=== PATIENT | female | born 1985 | race Caucasian/White ===

== ENCOUNTER 2016-06-18 08:20 | Emergency (ER) | payer SELFPAY ==
[~2016-06-18] VITALS: Ht 165.1 cm; Wt 59.0 kg
[~2016-06-18 08:20] MED LIST: ACET-789 PO; ACHD5005 PO; ALPR1T PO; ALPR2TAB2 PO; CARB100C4 PO; CPR500T PO; DCS100C PO; DESV50TA PO; Ibuprofen PO; LEVE500T6 PO; NAPR-243 PO; NITR100C3 PO; PHEN200T27 PO; PNV11TAB PO; PRM25T PO; SERT50TA PO; TRM50T PO; WELLBUTRIN; [UNRECOGNIZED DRUG - CODE] PO
[2016-06-18 09:05] LABS: BILIRUBIN,URINE NEGATIVE (NEGATIVE); KETONES,URINE 4+ (NEGATIVE); LEUKOCYTE ESTERASE ,URINE NEGATIVE (NEGATIVE); NITRITE,URINE NEGATIVE (NEGATIVE); PH,URINE 6 (5-9); PROTEIN,URINE NEGATIVE (NEGATIVE); UROBILINOGEN,URINE NORMAL (NORMAL)
[2016-06-18 09:16] LABS: WBC,URINE RARE /HPF
[2016-06-18] MEDS ORDERED: LIDOCAINE 2% VISCOUS 15 ML UDC PO ONE (09:30)
[2016-06-18] MEDS ORDERED: ANTACID SUSP 30 ML UDC (MYLANTA) PO ONE (09:30)
[2016-06-18] MEDS ORDERED: NS IV 1000 ML 1,000 ML IV SCH (09:30)
[2016-06-18] MEDS ORDERED: LORazepam INJ 2 MG/ML (ATIVAN) VIAL ONE (09:54)
[2016-06-18 10:00] LABS: BASOPHILS % (AUTO) 0 % (0-10); EOSINOPHILS # (AUTO) 0.2 10^3/uL (0.0-0.3); EOSINOPHILS % (AUTO) 2 % (0-10); LYMPHOCYTES # (AUTO) 2.4 X 10^3 (1.0-4.0); LYMPHOCYTES % (AUTO) 20 % (12-44); MEAN CORPUSCULAR HEMOGLOBIN 33 PG (25-34); MEAN CORPUSCULAR HGB CONC 34 G/DL (32-36); MEAN CORPUSCULAR VOLUME 95 FL (80-99); MEAN PLATELET VOLUME 9.9 FL (7.4-10.4); MONOCYTES # (AUTO) 0.5 X 10^3 (0.0-1.0); MONOCYTES % (AUTO) 4 % (0-12); NEUTROPHILS # (AUTO) 9.2 X 10^3 (1.8-7.8); NEUTROPHILS % (AUTO) 75 % (42-75); PLATELET COUNT 287 10^3/uL (130-400); RED BLOOD COUNT 4.68 10^6/uL (4.35-5.85); RED CELL DISTRIBUTION WIDTH 12.2 % (10.0-14.5); WHITE BLOOD COUNT 12.3 10^3/uL (4.3-11.0)
[2016-06-18] MEDS ORDERED: LORazepam INJ 2 MG/ML (ATIVAN) VIAL IVP ONE (10:15)
[2016-06-18 10:19] LABS: ALANINE AMINOTRANSFERASE 22 U/L (0-55); ALBUMIN 4.8 G/DL (3.2-4.5); AMYLASE 47 U/L (25-125); ANION GAP 10 MMOL/L (5-14); ASPARTATE AMINO TRANSFERASE 18 U/L (5-34); BILIRUBIN,TOTAL 0.9 MG/DL (0.1-1.0); BLOOD UREA NITROGEN 14 MG/DL (7-18); BUN/CREATININE RATIO 18; CALCIUM 9.9 MG/DL (8.5-10.1); CARBON DIOXIDE 23 MMOL/L (21-32); CHLORIDE 106 MMOL/L (98-107); CREATININE SERUM 0.78 MG/DL (0.60-1.30); GFR ESTIMATED > 60; GLUCOSE 84 MG/DL (70-105); POTASSIUM 3.9 MMOL/L (3.6-5.0); SODIUM 139 MMOL/L (135-145); TOTAL PROTEIN 7.7 G/DL (6.4-8.2)
[2016-06-18] MEDS ORDERED: NS 100 ML (IVPB) BAG IV ONE (11:15)
[2016-06-18] MEDS ORDERED: IOHEXOL 350 MG/ML 100 ML (OMNIPAQUE 350) VIAL IV ONE (11:15)
--- NOTE | 2016-06-18 12:23 | Diagnostic Imaging Report ---
PROCEDURE: CT abdomen and pelvis with contrast. TECHNIQUE: Multiple contiguous axial images were obtained through the abdomen and pelvis after administration of intravenous contrast. INDICATION: Nausea and vomiting. Diarrhea. 100 mL of Omnipaque 350 is administered intravenously. FINDINGS: The lung bases appear clear. There is a 1.3 cm lesion in the central aspect of the liver anteriorly that becomes isodense to the rest of the liver on the delayed phase images, possibly representing an FNH or flash filling hemangioma. The gallbladder demonstrates no calcified stone. The spleen, the adrenals, and the pancreas appear unremarkable. The kidneys have symmetric enhancement and contrast excretion. There is no hydronephrosis. Abdominal aorta is normal in caliber. No para-aortic significantly enlarged lymph node is seen. The uterus demonstrates an IUD and there are bilateral adnexal prominent follicles. No bowel obstruction. No significant free fluid or fluid collection in the abdomen or pelvis is seen. The appendix is the not clearly identified. Mild stranding in the small bowel mesentery is seen. There is also mild enhancement of the gastric and small bowel mucosa without dilatation. Minimal prominence of mesenteric lymph nodes seen. This may correlate for underlying enteritis. Osseous structures demonstrate a sclerotic focus in the anterior aspect of the left iliac bone measuring 8 mm probably a bony island. IMPRESSION: The appendix is not seen. Mucosal enhancement in the stomach and small bowel with mesenteric stranding with prominence of mesenteric lymph nodes, may relate to gastroenteritis. Correlate clinically. Dictated by: Dictated on workstation # [id number]
--- NOTE | 2016-06-18 12:39 | ED GI ---
General Chief Complaint: Abdominal/GI Problems Stated Complaint: ABDOMINAL PAIN,BLOOD IN STOOL Nursing Triage Note: c/o increased acid reflux followed by vomiting. Pt concerned about diarrhea and rectal pain. Hx of bulemia. Hx of esophagitis 2004. Sepsis Screen: No Definite Risk Source of Information: Patient, Family History of Present Illness Time Seen By Provider: 10:45 Initial Comments 31-year-old white female presents with acute anxiety. Patient has been depressed since her committed suicide several years ago. The patient has had a history of recurrent similar presentations to the emergency department for anxiety. Patient had a variety of laboratory evaluations which were all apparently unremarkable. Patient is under the care of Dr. Stevenson at [facility]. Allergies and Home Medications Allergies Coded Allergies: Penicillins (Verified Allergy, Unknown, 09/06/05) latex (Verified Allergy, Unknown, 05/19/13) Home Medications Docusate Sodium 100 Mg Cap, 100 MG PO BID PRN for CONSTIPATION, #20 Prescribed by: ZHOU BALDWIN on 09/06/13 0951 Hydrocodone Bit/Acetaminophen 1 Tab Tab, 1-2 TAB PO Q4H PRN for pain, #50 Prescribed by: ZHOU BALDWIN on 09/06/13 0951 Levetiracetam 500 Mg Tablet, 500 MG PO BID, (Reported) [id number]/Iron Fumarate/FA/Dss 1 Each Tablet, 1 EACH PO DAILY, (Reported) Promethazine Hcl 25 Mg Tab, 25 MG PO Q6H, (Reported) [Ibuprofen] 600 MG TAB, 600 MG PO Q6H PRN for PAIN, #60 Prescribed by: ZHOU BALDWIN on 09/06/13 0951 Review of Systems Constitutional: No chills, No fever Respiratory: Denies Cough Cardiovascular: Denies Chest Pain Gastrointestinal: Abdominal Pain, Denies Diarrhea, Nausea, Poor Appetite, Denies Vomiting Genitourinary: Denies Burning, Denies Discharge Musculoskeletal: No back pain Skin: No change in color, No rash Psychiatric/Neurological: Anxiety, Depressed Endocrine: No Symptoms Reported Hematologic/Lymphatic: No Symptoms Reported Past Fvxwukq-Omneyo-Hlzazi Hx Patient Social History Alcohol Use: Occasionally Uses Recreational Drug Use: No Type Used: Cigars Recent Foreign Travel: No Contact w/Someone Who Travel: No Recent Infectious Disease Expo: No Recent Hopitalizations: Yes (T&A, ESOPHAGITIS, ) Immunizations Up To Date Tetanus Booster (TDap): Unknown Surgeries HX Surgeries: Yes (EGD, COLONOSCOPY C/S X2, ) Respiratory Hx Respiratory Disorders: No Cardiovascular Hx Cardiac Disorders: No Neurological Hx 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) Reproductive System Hx Reproductive Disorders: Yes Sexually Transmitted Disease: Yes (HPV) HIV/AIDS: No Female Reproductive Disorders: Denies Genitourinary Hx Genitourinary Disorders: No Gastrointestinal Hx Gastrointestinal Disorders: No Musculoskeletal Hx Musculoskeletal Disorders: No Endocrine Hx Endocrine Disorders: No HEENT HX ENT Disorders: No Cancer Hx Cancer: No Psychosocial Hx Psychiatric Problems: Yes Behavioral Health Disorders: Anxiety, PTSD Integumentary HX Skin/Integumentary Disorder: Yes Skin/Integumentary Disorders: Eczema Blood Transfusions Hx Blood Disorders: No Adverse Reaction to a Blood Tr: No Reviewed Nursing Assessment Reviewed/Agree w Nursing PMH: Yes Family Medical History Significant Family History: No Pertinent Family Hx Family Medial History: Alcoholism 19 FATHER GRANDPARENTS Cancer 19 MOTHER (CERVICAL) Family history: Arthritis GRANDPARENTS Hereditary disease GRANDPARENTS (SPINEA BIFEA) Seizure disorder GRANDPARENTS No Family History of: Abdominal aortic aneurysm Cancer of colon Cystic fibrosis Dementia Family history: Cardiovascular disease Family history: Diabetes mellitus Family history: Thyroid disorder Kidney disease Myocardial infarction Parkinson's disease Prostate cancer Psychotic disorder Stroke Physical Exam Vital Signs VS - Last 72 Hours, by Label 06/18/16 09:05 Temp 97.8 Pulse 88 Resp 16 B/P (MAP) 138/60 Pulse Ox 98 O2 Delivery Room Air Capillary Refill : Less Than 3 Seconds General Appearance: WD/WN, severe distress HEENT: normal ENT inspection Neck: normal inspection Respiratory: chest non-tender, lungs clear, normal breath sounds Cardiovascular: normal peripheral pulses, regular rate, rhythm Gastrointestinal: normal bowel sounds, non tender, soft Extremities: normal range of motion, non-tender, normal inspection Back: normal inspection Neurologic/Psychiatric: no motor/sensory deficits, alert, normal mood/affect, oriented x 3, depressed affect, other (the patient's extremely anxious. She also appears to be clinically depressed.) Skin: normal color, warm/dry Progress/Results/Core Measures Results/Orders Lab Results Laboratory Tests Test 06/18/16 09:00 06/18/16 09:50 Range/Units Urine Color YELLOW Urine Clarity CLEAR Urine pH 6 5-9 Urine Specific [place] 1.020 1.016-1.022 Urine Protein NEGATIVE NEGATIVE Urine Glucose (UA) NEGATIVE NEGATIVE Urine Ketones 4+ H NEGATIVE Urine Nitrite NEGATIVE NEGATIVE Urine Bilirubin NEGATIVE NEGATIVE Urine Urobilinogen NORMAL NORMAL MG/DL Urine Leukocyte Esterase NEGATIVE NEGATIVE Urine RBC (Auto) NEGATIVE NEGATIVE Urine RBC RARE /HPF Urine WBC RARE /HPF Urine Squamous Epithelial Cells 2-5 /HPF Urine Crystals NONE /LPF Urine Bacteria TRACE /HPF Urine Casts NONE /LPF Urine Mucus MODERATE H /LPF Urine Culture Indicated NO Urine Test NEGATIVE NEGATIVE White Blood Count 12.3 H 4.3-11.0 10^3/uL Red Blood Count 4.68 4.35-5.85 10^6/uL Hemoglobin 15.3 11.5-16.0 G/DL Hematocrit 45 35-52 % Mean Corpuscular Volume 95 80-99 FL Mean Corpuscular Hemoglobin 33 25-34 PG Mean Corpuscular Hemoglobin Concent 34 32-36 G/DL Red Cell Distribution Width 12.2 10.0-14.5 % Platelet Count 287 130-400 10^3/uL Mean Platelet Volume 9.9 7.4-10.4 FL Neutrophils (%) (Auto) 75 42-75 % Lymphocytes (%) (Auto) 20 12-44 % Monocytes (%) (Auto) 4 0-12 % Eosinophils (%) (Auto) 2 0-10 % Basophils (%) (Auto) 0 0-10 % Neutrophils # (Auto) 9.2 H 1.8-7.8 X 10^3 Lymphocytes # (Auto) 2.4 1.0-4.0 X 10^3 Monocytes # (Auto) 0.5 0.0-1.0 X 10^3 Eosinophils # (Auto) 0.2 0.0-0.3 10^3/uL Basophils # (Auto) 0.0 0.0-0.1 10^3/uL Sodium Level 139 135-145 MMOL/L Potassium Level 3.9 3.6-5.0 MMOL/L Chloride Level 106 98-107 MMOL/L Carbon Dioxide Level 23 21-32 MMOL/L Anion Gap 10 5-14 MMOL/L Blood Urea Nitrogen 14 7-18 MG/DL Creatinine 0.78 0.60-1.30 MG/DL Estimat Glomerular Filtration Rate > 60 BUN/Creatinine Ratio 18 Glucose Level 84 70-105 MG/DL Calcium Level 9.9 8.5-10.1 MG/DL Total Bilirubin 0.9 0.1-1.0 MG/DL Aspartate Amino Transf (AST/SGOT) 18 5-34 U/L Alanine Aminotransferase (ALT/SGPT) 22 0-55 U/L Alkaline Phosphatase 49 40-136 U/L Total Protein 7.7 6.4-8.2 G/DL Albumin 4.8 H 3.2-4.5 G/DL Amylase Level 47 25-125 U/L My Orders Orders - IZZY PFEIFFER MD Hcg,Qualitative Urine (06/18/16 08:54) Ua Culture If Indicated (06/18/16 08:54) Antacid Suspension (Mylanta Suspension (06/18/16 09:30) Lidocaine 2% Viscous 15 Ml (Xylocaine Vi (06/18/16 09:30) Cbc With Automated Diff (06/18/16 09:27) Comprehensive Metabolic Panel (06/18/16 09:27) Amylase (06/18/16 09:27) Ns Iv 1000 Ml (Sodium Chloride 0.9%) (06/18/16 09:30) Lorazepam Injection (Ativan Injection) (06/18/16 09:54) Lorazepam Injection (Ativan Injection) (06/18/16 10:15) Iohexol Injection (Omnipaque 350 Mg/Ml 1 (06/18/16 11:15) Ns (Ivpb) (Sodium Chloride 0.9% Ivpb Bag (06/18/16 11:15) Ct Abdomen/Pelvis W (06/18/16 10:52) Medications Given in ED Current Medications Medications Dose Ordered Sig/Carol Route Start Time Stop Time Status Last Admin Dose Admin Al Hydrox/Mg Hydrox/Simethicone 30 ml ONCE ONCE PO 06/18/16 09:30 06/18/16 09:32 DC 06/18/16 09:45 30 ML Iohexol 100 ml ONCE ONCE IV 06/18/16 11:15 06/18/16 11:16 DC 06/18/16 11:55 100 ML Lidocaine HCl 5 ml ONCE ONCE PO 06/18/16 09:30 06/18/16 09:32 DC 06/18/16 09:45 5 ML Lorazepam 2 mg STK-MED ONCE .ROUTE 06/18/16 09:54 06/18/16 09:58 DC 06/18/16 10:00 2 MG Vital Signs/I&O Vital Sign - Last 12Hours 06/18/16 09:05 Temp 97.8 Pulse 88 Resp 16 B/P (MAP) 138/60 Pulse Ox 98 O2 Delivery Room Air Blood Pressure Mean: 86 Departure Communication Time/Spoke to Admitting Phy: 12:42 Communication I spoke with Dr. Stevenson who agreed to start patient on some Celexa this with some Ativan for her anxiety. Patient will follow up closely with Dr. Mercado on Tuesday. I invited her to return the emergency Department in the interim for any problems or questions Impression Impression: Primary Impression: Anxiety Additional Impression: Depression Qualified Codes: F33.2 - Major depressive disorder, recurrent severe without psychotic features Disposition: HOME, SELF-CARE Condition: Improved Departure-Patient Inst. Decision time for Depature: 12:46 Referrals: [facility] (PCP/Family) Primary Care Physician Patient Instructions: No Instuctions Given Add. Discharge Instructions: Celexa and Ativan for her depression and anxiety. Follow-up with Dr. Stevenson on Tuesday. Return if any problems. All discharge instructions reviewed with patient and/or family. Voiced understanding. IZZY PFEIFFER MD June 18, 2016 12:38
[2016-06-18 13:08] VITALS: BP 128/70
== END 2016-06-18 13:08 | disposition home or self-care (01) ==
LOC: EDUNIT# 08:20 → ER 08:24
DX: F33.9 Major depressive disorder, recurrent, unspecified (principal); F41.9 Anxiety disorder, unspecified
CPT/HCPCS: 36415; 74177; 80053; 81000; 82150; 84703; 85025; 96361; 96374

== ENCOUNTER → 2018-07-07 | Outpatient (CLI) | payer MEDICAID ==
--- NOTE | 2018-07-07 16:46 | Diagnostic Imaging Report ---
INDICATION: survey. TECHNIQUE: Multiple real-time grayscale images were obtained over the gravid uterus. COMPARISON: None FINDINGS: There is a single live fetus in a cephalic presentation. heart rate was recorded at 163 beats per minute. Placenta is anterior. Amniotic fluid volume is normal. survey demonstrates kidneys, bladder and stomach to be unremarkable. brain is unremarkable. There is a four-chambered heart. There is a three-vessel cord with normal insertion. spine is unremarkable. Cervical length measurement is 4.0 cm. Biometrical measurements are as follows: Biparietal 5.41 cm, age 22 weeks 4 days. Head circumference 19.97 cm, age 22 weeks 1 days. Abdominal circumference 15.68 cm, age 20 weeks 6 days. Femur length 3.60 cm, age 21 weeks 3 days. Sonographic estimate age: 21 weeks 6 days. Sonographic estimated date of delivery: 11/11/18. Estimated Weight: 410 gm (+/- 60 gm). LMP percentile: 4%. heart rate: 163 beats per minute. number: 1 of 1. IMPRESSION: Single live IUP 21 weeks 6 days' gestational age. Estimated date of confinement sonographically is 11/11/2018. Dictated by: Dictated on workstation # [id number]
== END ==
LOC: RAD 13:07
PROVIDERS: ATTEND Obstetrics & Gynecology
DX: Z36.89 Encounter for other specified antenatal screening (principal); Z3A.21 21 weeks gestation of pregnancy
CPT/HCPCS: 76805

== ENCOUNTER 2018-10-12 11:45 | Outpatient (CLI) | payer MEDICAID ==
[~2018-10-12] VITALS: Ht 165.1 cm; Wt 71.7 kg
--- NOTE | 2018-10-12 11:45 | NUR ---
MARY LEDEZMA presented to unit via ambulation, accompanied by S.O., with c/o LOWER BACK PAIN AND CRAMPING. MARY LEDEZMA weighed, gowned, voided, and to bed. EFHM and TOCO applied, VS taken. MARY LEDEZMA oriented to bed controls, call light, TV, heat, and A/C controls.
[2018-10-12 11:55] VITALS: BP 134/86
[2018-10-12 12:37] LABS: BILIRUBIN,URINE NEGATIVE (NEGATIVE); CLARITY,URINE CLEAR; COLOR,URINE YELLOW; GLUCOSE, URINE (UA) NEGATIVE (NEGATIVE); KETONES,URINE NEGATIVE (NEGATIVE); LEUKOCYTE ESTERASE ,URINE NEGATIVE (NEGATIVE); NITRITE,URINE NEGATIVE (NEGATIVE); PH,URINE 6 (5-9); PROTEIN,URINE NEGATIVE (NEGATIVE); UROBILINOGEN,URINE NORMAL (NORMAL)
[2018-10-12 12:41] LABS: BACTERIA,URINE TRACE /HPF; WBC,URINE RARE /HPF
--- NOTE | 2018-10-12 12:50 | NUR ---
Dr. Neal called to notify of pt. Giving presentation, will call back in about 10min as not emergent.
--- NOTE | 2018-10-12 13:05 | NUR ---
Dr. Neal called back to unit. notified of pt c/o lower back and abdominal cramping and pain, which is constant and intermittently gets worse. Movement and movement make pain worse as well. Pt also experiencing sharp, shooting pains "in cervix". Pt reports having this pain almost all and has been taking muscle relaxers and pain medications, she thinks flexeril and oxycodone. Pt missed last appt with Dr. Ruff and was supposed to get medications refilled at that time, and has been out for about a week. Pt took 500mg tylenol this am around 0800, but got no relief. notified of rpt c/s, FHR, ctx pattern, SVE, VS, UA. Orders for CBC, no pain medication at this time.
--- NOTE | 2018-10-12 13:16 | NUR ---
Pt notified of POC. Pt agitated that no pain medications are given and says "If all we are doing is blood work then I will just wait to do that in the office because I have an appt with Ruff this afternoon and she was going to do that anyway." Dr. Neal called and notified of pt refusing CBC. Dismiss pt without CBC.
[2018-10-12] MEDS ORDERED: OMEP10CA5 PO (13:23)
--- NOTE | 2018-10-12 13:30 | NUR ---
Discharge instructions explained to pt with copy provided. Pt verbalizes understanding of instructions. Denies questions or concerns. Ambulates off unit accompanied by S.O. to private vehicle.
--- NOTE | 2018-10-13 10:51 | Physician Query-Final Dx ---
NADIA BELL 10/13/18 1051: Clinic Account Progress/Dx Physician Query: Please give diagnosis Please remember to add weeks gestation Date of Service Oct 12, 2018 at 11:45 ZHOU BALDWIN DO 10/14/18 0752: Clinic Account Progress/Dx DIAGNOSIS: Diagnosis 35 week IUP Pelvic pressure and dyscomfort Irregular contractions NADIA BELL Oct 13, 2018 10:51 ZHOU BALDWIN DO Oct 14, 2018 07:52
== END 2018-10-12 13:30 | disposition home or self-care (01) ==
LOC: WSo 11:45 → LDRP 11:45 → WSo 13:30
PROVIDERS: ATTEND Obstetrics & Gynecology
DX: O47.03 False labor before 37 completed weeks of gestation, third trimester (principal); Z3A.35 35 weeks gestation of pregnancy
CPT/HCPCS: 81000; 99213

== ENCOUNTER → 2018-10-24 | Outpatient (CLI) | payer MEDICAID ==
[~2018-10-24] MED LIST changes: +OMEP10CA5 PO
== END | disposition home or self-care (01) ==
LOC: PREOP 05:49
PROVIDERS: ATTEND Obstetrics & Gynecology
DX: Z01.818 Encounter for other preprocedural examination (principal)

== ENCOUNTER 2018-10-31 06:10 | Inpatient (IN) | payer MEDICAID ==
[2018-10-31] VITALS (10 sets, daily range): BP systolic 109–147; BP diastolic 69–86
[~2018-10-31] VITALS: Ht 165.1 cm; Wt 74.6 kg
[~2018-10-31 06:10] MED LIST changes: +ALPR0.25 PO; +CITRIC ACID/SOB CIT (BICITRA) 30 ML UDC ONE; +CYCL10TA9 PO; +ESCI20TA PO; +FAMOTIDINE 20MG/2ML IV (PEPCID) ONE; +METOCLOPRAMIDE INJ 10 MG/2 ML (REGLAN) ONE; +OXYC-471 PO
--- NOTE | 2018-10-31 06:19 | NUR ---
MARY LEDEZMA presented to unit via ambulation from home/ED, accompanied by SO, for REPEAT . MARY LEDEZMA weighed, gowned, voided, and to bed. EFHM and TOCO applied, VS taken. MARY LEDEZMA oriented to bed controls, call light, TV, heat, and A/C controls.
[2018-10-31] MEDS ORDERED: LACTATED RINGERS 1,000 ML IV PRN ×2 (06:22)
[2018-10-31] MEDS ORDERED: ceFAZolin INJECTION 1,000 MG in WATER (STERILE) FOR INJECTION 10 ML IV ONE ×2 (06:30→09:15)
[2018-10-31] MEDS ORDERED: METOCLOPRAMIDE INJ 10 MG/2 ML (REGLAN) IV ONE (06:30)
[2018-10-31] MEDS ORDERED: FAMOTIDINE 20MG/2ML IV (PEPCID) IV ONE (06:30)
[2018-10-31] MEDS ORDERED: CITRIC ACID/SOB CIT (BICITRA) 30 ML UDC PO ONE (06:30)
[2018-10-31] MEDS ORDERED: CATHETER FLUSH 10 ML SYR IV PRN (06:30)
[2018-10-31] MEDS ORDERED: WATER (STERILE) FOR INJECTION 20 ML ONE (06:47)
[2018-10-31] MEDS ORDERED: ceFAZolin INJECTION 1,000 MG ONE (06:47)
[2018-10-31] MEDS ORDERED: fentaNYL INJECTION 100 MCG/2 ML AMP ONE (06:57)
[2018-10-31] MEDS ORDERED: ROPIVACAINE 5MG/ML 30ML VIAL ONE ×2 (06:57→08:32)
[2018-10-31 07:00] LABS: BASOPHILS % (AUTO) 0 % (0-10); EOSINOPHILS # (AUTO) 0.3 10^3/uL (0.0-0.3); EOSINOPHILS % (AUTO) 2 % (0-10); HEMATOCRIT 35 % (35-52); HEMOGLOBIN 11.6 G/DL (11.5-16.0); LYMPHOCYTES # (AUTO) 3.1 X 10^3 (1.0-4.0); LYMPHOCYTES % (AUTO) 25 % (12-44); MEAN CORPUSCULAR HEMOGLOBIN 32 PG (25-34); MEAN CORPUSCULAR HGB CONC 33 G/DL (32-36); MEAN CORPUSCULAR VOLUME 98 FL (80-99); MEAN PLATELET VOLUME 10.2 FL (7.4-10.4); MONOCYTES # (AUTO) 0.8 X 10^3 (0.0-1.0); MONOCYTES % (AUTO) 6 % (0-12); NEUTROPHILS # (AUTO) 8.3 X 10^3 (1.8-7.8); NEUTROPHILS % (AUTO) 66 % (42-75); PLATELET COUNT 306 10^3/uL (130-400); RED CELL DISTRIBUTION WIDTH 12.9 % (10.0-14.5); WHITE BLOOD COUNT 12.4 10^3/uL (4.3-11.0)
[2018-10-31 07:01] LABS: BILIRUBIN,URINE NEGATIVE (NEGATIVE); CLARITY,URINE CLEAR; COLOR,URINE YELLOW; GLUCOSE, URINE (UA) NEGATIVE (NEGATIVE); KETONES,URINE 1+ (NEGATIVE); LEUKOCYTE ESTERASE ,URINE 1+ (NEGATIVE); NITRITE,URINE NEGATIVE (NEGATIVE); PH,URINE 6 (5-9); PROTEIN,URINE 1+ (NEGATIVE); UROBILINOGEN,URINE NORMAL (NORMAL)
[2018-10-31] MEDS ORDERED: OXYTOCIN/NORMAL SALINE 1,000 ML IV ONE (07:04)
[2018-10-31 07:21] LABS: BACTERIA,URINE FEW /HPF; WBC,URINE 0-2 /HPF
[2018-10-31] MEDS ORDERED: OXYTOCIN/NORMAL SALINE 500 ML IV SCH (09:03)
--- NOTE | 2018-10-31 09:11 | Cesarean Section Operative ---
Procedure Procedure Note Pre-operative Diagnosis: Seth De La Cruz is a (31 /Para 4 /4 , Gestational Age (wks) with [] Post-operative Diagnosis: same Procedure: Repeat low transverse section Physician: PRATIK MEZA Automatic Oven Operator: Meenu Zapien MS III Estimated blood loss: 400 mL Disposition: stable Findings: Viable female infant, Apgars 8/9, weight 5#13ounces, intact placenta, 3vc, normal appearing uterus, tubes, and ovaries. Indications:Seth De La Cruz is a (31 /Para 4/4 ,Gestational Age (wks) presenting for []. Procedure Details: The patient was seen in pre-op and the procedure was discussed with the patient in full, including the risks, benefits, and alternatives. All questions were answered. The patient was taken to the operating room and a time out was performed, verifying patient and procedure. After spinal anesthesia was placed by our anesthesia colleagues, the patient was placed in the dorsal supine with leftward tilt for uterine displacement.~ Her abdomen was then prepped and draped in the typical sterile fashion. A Pfann enstiel skin incision was made using a scalpel and carried down through the underlying fascia. The fascia was incised in the midline and tented up using Brinda clamps. On both the inferior and superior fascia side the rectus muscle was dissected off bluntly and sharply using Acosta scissors. The peritoneum was identified and entered bluntly in the midline. This was then stretched laterally using manual strength. After entering the abdominal cavity and confirming lack of intraperitoneal adhesions, a large Mathew retractor was placed and the lower uterine segment was visualized. A bladder flap was created with the use of Metzenbaum scissors.~ A scalpel was utilized to make a low transverse uterine incision. Amniotomy was performed with an Allis clamp with return of clear fluid. The 's head was grasped and brought to the level of the incision. Fundal pressure was applied and infant was delivered without difficulty. Mouth and nares were suctioned with bulb suction. After the umbilical cord was clamped and cut, the was handed off to the pediatric staff. A sample of cord blood was then obtained. The placenta was delivered intact via uterine massage. The uterus was exteriorized and cleared of all clots and debris. The uterine incision was closed using 0 Vicryl in a running locked fashion. A second imbricated layer was placed using 0 Vicryl in a running fashion as well. The uterus was flexed forward and the posterior rectouterine space was inspected and cleared of all clots and debris. Again the hysterotomy site was examined and hemostasis was observed. The bilateral tubes and ovaries appeared normal. The uterus was placed back into the abdominal cavity and abdominal gutters were cleared of all clots and debris. A final check of the uterine incision showed it to be hemostatic. The peritoneum was closed using 3-0 Vicryl in a running fashion. The fascia was closed with 0 Vicryl in a running fashion. The subcutaneous space was hemostatic, and irrigated. The subcutaneous space was closed with 3-0 Vicryl in several single interrupted stitches. The skin was then closed using 4-0 Monocryl in a running subcuticular fashion. The skin edges were reapproximated together and were hemostatic. A pressure dressing was applied. All sponge, lap and needle counts were correct at the end of the procedure per nursing. Vitals - Labs Vital Signs - I&O Vital Signs Date Time Temp Pulse Resp B/P (MAP) Pulse Ox O2 Delivery O2 Flow Rate FiO2 10/31/18 08:48 Room Air Labs Laboratory Tests 10/31/18 06:20: Urine Color YELLOW, Urine Clarity CLEAR, Urine pH 6, Urine Specific [place] 1.030H, Urine Protein 1+H, Urine Glucose (UA) NEGATIVE, Urine Ketones 1+H, Urine Nitrite NEGATIVE, Urine Bilirubin NEGATIVE, Urine Urobilinogen NORMAL, Urine Leukocyte Esterase 1+H, Urine RBC (Auto) NEGATIVE, Urine RBC NONE, Urine WBC 0- 2, Urine Squamous Epithelial Cells 5-10, Urine Crystals NONE, Urine Bacteria FEWH, Urine Casts NONE, Urine Mucus LARGEH, Urine Culture Indicated YES 10/31/18 06:40: White Blood Count 12.4H, Red Blood Count 3.58L, Hemoglobin 11.6, Hematocrit 35, Mean Corpuscular Volume 98, Mean Corpuscular Hemoglobin 32, Mean Corpuscular Hemoglobin Concent 33, Red Cell Distribution Width 12.9, Platelet Count 306, Mean Platelet Volume 10.2, Neutrophils (%) (Auto) 66, Lymphocytes (%) (Auto) 25, Monocytes (%) (Auto) 6, Eosinophils (%) (Auto) 2, Basophils (%) (Auto) 0, Neutrophils # (Auto) 8.3H, Lymphocytes # (Auto) 3.1, Monocytes # (Auto) 0.8, Eosinophils # (Auto) 0.3, Basophils # (Auto) 0.0 PRATIK MEZA DO Oct 31, 2018 09:11
[2018-10-31] MEDS ORDERED: MEASLES,MUMPS,RUBELLA 1 EA INJ SC SCH (09:15)
[2018-10-31] MEDS ORDERED: TETANUS,DIPTH,PERTUSS P/F (BOOSTRIX) 0.5 ML VIAL IM SCH (09:15)
--- NOTE | 2018-10-31 10:00 | NUR ---
TRANSFERRED TO PP ROOM 308 FROM [facility] AFTER A REPEAT SECTION BY DR. MEZA. ORIENTED TO CALL LIGHT OPERATION, ROOM SERVICE PROCEDURE, AND SURROUNDINGS. S.O. AT BEDSIDE. VSS. ABD SOFT. ABD DRSG D/I. (LOW TRANSVERSE) FF U/2. VAG FLOW LT/MOD GUZMAN. INSTRUCTED PT TO CALL THIS RN WHEN SHE NEEDS TO URINATE. STATES UNDERSTANDING.
--- NOTE | 2018-10-31 11:35 | NUR ---
UP TO THE BATHROOM TO ATTEMPT TO VOID. PT HAD PUT ON HER LIGHT BUT STARTED GETTING UP WITHOUT RN IN ROOM. UNABLE TO VOID. PERICARE PERFORMED WITH PAD AND UNDERWEAR APPLIED. BACK TO BED WITHOUT PROBLEMS. BEARING WEIGHT WELL.
[2018-10-31] MEDS: KETOROLAC 30 MG/ML VIAL IV SCH ×2 (12:06→17:52)
--- NOTE | 2018-10-31 12:08 | NUR ---
OXYIR 5 MG P.O. FOR C/O ABD PAIN. PT COUGHING. RT NOTIFIED UPON ARRIVAL FOR I.S.
[2018-10-31] MEDS: morphine INJ 4 MG/ML 1 ML (VIAL/SYRINGE) IVP PRN ×2 (12:48→18:35)
--- NOTE | 2018-10-31 12:48 | NUR ---
PT TEARFUL AND C/O MEDICATION NOT WORKING. MSO4 2 MG IVP.
--- NOTE | 2018-10-31 13:30 | NUR ---
STATES PAIN DECREASED TO 2/10. FAMILY AT BEDSIDE. FF U/2. VAG FLOW LT/MOD RUBRA.
--- NOTE | 2018-10-31 14:15 | NUR ---
ROUTINE TYLENOL GIVEN. PT ASKING WHEN SHE CAN HAVE "THE GOOD STUFF". INFORMED IT WOULD BE A WHILE LONGER. FAMILY AT BEDSIDE.
[2018-10-31] MEDS: ACETAMINOPHEN 500 MG TAB (TYLENOL) PO SCH (14:28)
--- NOTE | 2018-10-31 14:49 | NUR ---
RT IN TO DO I.S. FAMILY AT BEDSIDE.
--- NOTE | 2018-10-31 16:00 | NUR ---
UP TO THE BATHROOM WITH ASSISTANCE. VOIDED 200 CC DARK KRISTIE URINE. PERICARE WITH PAD CHANGE. BACK TO BED WITHOUT PROBLEMS. FF U/2. VAG FLOW LT RUBRA. ENCOURAGED TO DRINK MORE FLUIDS. FAMILY AT BEDSIDE.
--- NOTE | 2018-10-31 17:48 | NUR ---
OXYIR 5 MG P.O. FOR C/O ABD PAIN. TORADOL GIVEN.
--- NOTE | 2018-10-31 18:35 | NUR ---
MORPHINE 2 MG IVP FOR C/O UNRELIEVED PAIN.
--- NOTE | 2018-10-31 19:20 | NUR ---
REPORT RECEIVED AND CARES RESUMED BY THIS NURSE.
--- NOTE | 2018-10-31 20:15 | NUR ---
INITIAL SHIFT ASSESSMENT DONE. PT REPORTS PAIN UNCONTROLLED AND REPORTS THAT 5MG OF OXYCODONE AND THE MORPHINE ARE NOT TOUCHING HER PAIN. VSS. WILL CONTACT DR MEZA FOR ORDERS.
[2018-10-31] MEDS: CATHETER FLUSH 10 ML SYR IV SCH (22:00)
--- NOTE | 2018-10-31 23:15 | NUR ---
ROUNDING COMPLETED. PT REPORTS PAIN IS TOLERABLE, BUT IS READY FOR OXYCODONE WHEN DUE. PT DENIES ANY FURTHER NEEDS OR C/O'S AT THIS TIME. QUESTIONS CONCERNING BEHAVIORS AND CARES ANSWERED.
[2018-11-01] MEDS: KETOROLAC 30 MG/ML VIAL IV SCH ×2 (00:35→06:55)
[2018-11-01] MEDS: CATHETER FLUSH 10 ML SYR IV SCH (00:35)
--- NOTE | 2018-11-01 00:35 | NUR ---
PT SITTING UP IN BED . REPORTS INCREASED CRAMPING AND DISCOMFORT. WILL ADMINISTER ROUTINE TORADOL AND OXYCODONE PER REQUEST.
[2018-11-01] MEDS: DOCUSATE SODIUM 100 MG (COLACE) CAP PO SCH ×3 (00:37→20:44)
--- NOTE | 2018-11-01 01:40 | NUR ---
BABY SWADDLE PER MOM'S REQUEST.
[2018-11-01 01:45] VITALS: BP 110/72
--- NOTE | 2018-11-01 02:30 | NUR ---
PT UP TO BATHROOM. TO NSY FOR HS CARES.
--- NOTE | 2018-11-01 03:00 | NUR ---
PT AWAKENED TO BREASTFEED.
[2018-11-01] MEDS ORDERED: MILK OF MAGNESIA 400 MG/5 ML 30 ML UDC PO PRN (05:00)
--- NOTE | 2018-11-01 05:15 | NUR ---
AM LABS HAVE BEEN DRAWN. PT REQUESTS PAIN MEDS. VSS. WILL ADMINISTER TYLENOL AND OXYCODONE REQUESTED.
[2018-11-01 05:30] VITALS: BP 120/80
[2018-11-01 05:40] LABS: BASOPHILS % (AUTO) 0 % (0-10); EOSINOPHILS # (AUTO) 0.3 10^3/uL (0.0-0.3); EOSINOPHILS % (AUTO) 2 % (0-10); HEMATOCRIT 31 % (35-52); HEMOGLOBIN 10.4 G/DL (11.5-16.0); LYMPHOCYTES # (AUTO) 2.8 X 10^3 (1.0-4.0); LYMPHOCYTES % (AUTO) 26 % (12-44); MEAN CORPUSCULAR HEMOGLOBIN 33 PG (25-34); MEAN CORPUSCULAR HGB CONC 33 G/DL (32-36); MEAN CORPUSCULAR VOLUME 98 FL (80-99); MEAN PLATELET VOLUME 10.2 FL (7.4-10.4); MONOCYTES # (AUTO) 0.6 X 10^3 (0.0-1.0); MONOCYTES % (AUTO) 6 % (0-12); NEUTROPHILS # (AUTO) 7.2 X 10^3 (1.8-7.8); NEUTROPHILS % (AUTO) 66 % (42-75); PLATELET COUNT 220 10^3/uL (130-400); RED CELL DISTRIBUTION WIDTH 12.5 % (10.0-14.5); WHITE BLOOD COUNT 10.8 10^3/uL (4.3-11.0)
[2018-11-01] MEDS: ACETAMINOPHEN 500 MG TAB (TYLENOL) PO SCH ×3 (05:42→15:07)
--- NOTE | 2018-11-01 07:42 | Anesthesia-Regional Post-Op ---
Regional Patient Condition Mental Status: Alert, Oriented x3 Circulation: Same as Pre-Op Headache: Absent Sensation: Full Recovery Motor Block: Absent Post Op Complications Complications None Follow Up Care/Instructions Patient Instructions None needed. Anesthesia/Patient Condition Patient is doing well, no complaints, stable vital signs, no apparent adverse anesthesia problems. No complications reported per nursing. VIVIANE BROTHERS CRNA Nov 01, 2018 07:42
--- NOTE | 2018-11-01 08:58 | Postpartum Progress Note ---
Post Op Post-operative Day #1 s/p RLTCS Subjective: Patient is without complaints. Ambulating, voiding after shaikh removed. Tolerating a regular diet without nausea or vomiting. Normal lochia. Pain is well controlled with oral pain medications. Passing flatus. [] feeding. [] Objective: Laboratory Tests Test 11/01/18 05:10 Range/Units White Blood Count 10.8 4.3-11.0 10^3/uL Red Blood Count 3.19 L 4.35-5.85 10^6/uL Hemoglobin 10.4 L 11.5-16.0 G/DL Hematocrit 31 L 35-52 % Mean Corpuscular Volume 98 80-99 FL Mean Corpuscular Hemoglobin 33 25-34 PG Mean Corpuscular Hemoglobin Concent 33 32-36 G/DL Red Cell Distribution Width 12.5 10.0-14.5 % Platelet Count 220 130-400 10^3/uL Mean Platelet Volume 10.2 7.4-10.4 FL Neutrophils (%) (Auto) 66 42-75 % Lymphocytes (%) (Auto) 26 12-44 % Monocytes (%) (Auto) 6 0-12 % Eosinophils (%) (Auto) 2 0-10 % Basophils (%) (Auto) 0 0-10 % Neutrophils # (Auto) 7.2 1.8-7.8 X 10^3 Lymphocytes # (Auto) 2.8 1.0-4.0 X 10^3 Monocytes # (Auto) 0.6 0.0-1.0 X 10^3 Eosinophils # (Auto) 0.3 0.0-0.3 10^3/uL Basophils # (Auto) 0.0 0.0-0.1 10^3/uL 11/01/18 11/01/18 01:45 05:30 Temp 36.4 36.2 Pulse 76 71 Resp 16 18 B/P (MAP) 110/72 (85) 120/80 (93) Pulse Ox 99 100 O2 Delivery Room Air Room Air 11/01/18 00:00 Intake Total 2500 ml Output Total 400 ml Balance 2100 ml Physical Exam: General - Alert and oriented, no apparent distress Abdomen - Soft, appropriately tender to palpation, non-distended, fundus firm at umbilicus Incision - clean, dry and intact; no erythema or induration, no drainage Extremities - no edema, negative Jabari's bilaterally [] Assessment: [] post-operative day # [], status post []. Recovering well, hemodynamically stable Acute blood loss anemia [] Plan: Routine post-operative care. Encourage breast feeding. Encourage ambulation. VTE prophylaxis: SCDs. Ferrous sulfate supplementation. Plan for discharge [] Vitals - Labs Vital Signs - I&O Vital Signs Date Time Temp Pulse Resp B/P (MAP) Pulse Ox O2 Delivery O2 Flow Rate FiO2 11/01/18 05:30 36.2 71 18 120/80 (93) 100 Room Air 11/01/18 01:45 36.4 76 16 110/72 (85) 99 Room Air 10/31/18 20:30 36.7 10/31/18 20:15 98 Room Air 10/31/18 20:15 36.7 72 16 147/86 (106) 98 Room Air 10/31/18 16:30 36.5 79 18 115/72 (86) 99 Room Air 10/31/18 11:45 36.5 75 18 138/72 (94) 100 Room Air 10/31/18 10:15 100 Room Air 10/31/18 10:15 36.5 72 16 114/76 (89) 100 Room Air 10/31/18 09:48 36.6 16 113/74 (87) 100 Room Air 10/31/18 09:48 Room Air 10/31/18 09:33 36.6 16 116/80 (92) 100 Room Air 10/31/18 09:33 Room Air 10/31/18 09:18 Room Air 10/31/18 09:18 36.6 16 111/69 (83) 100 Room Air 10/31/18 09:03 36.6 16 109/70 (83) 99 Room Air 10/31/18 09:03 Room Air I & O 11/01/18 07:00 Intake Total 3510 ml Output Total 850 ml Balance 2660 ml Labs Laboratory Tests 11/01/18 05:10: White Blood Count 10.8, Red Blood Count 3.19L, Hemoglobin 10.4L, Hematocrit 31L, Mean Corpuscular Volume 98, Mean Corpuscular Hemoglobin 33, Mean Corpuscular Hemoglobin Concent 33, Red Cell Distribution Width 12.5, Platelet Count 220, Mean Platelet Volume 10.2, Neutrophils (%) (Auto) 66, Lymphocytes (%) (Auto) 26, Monocytes (%) (Auto) 6, Eosinophils (%) (Auto) 2, Basophils (%) (Auto) 0, Neutrophils # (Auto) 7.2, Lymphocytes # (Auto) 2.8, Monocytes # (Auto) 0.6, Eo sinophils # (Auto) 0.3, Basophils # (Auto) 0.0 PRATIK MEZA DO Nov 01, 2018 08:58
[2018-11-01 09:00] VITALS: BP 125/88
--- NOTE | 2018-11-01 09:00 | NUR ---
CARING FOR IN ROOM. INFANT WELL TODAY. DR. MEZA HERE TO SEE PT.
--- NOTE | 2018-11-01 10:30 | NUR ---
PAIN MEDS GIVEN PER PT REQUEST. AMBULATING WELL. VOIDING WITHOUT PROBLEMS. AMBULATED DOWNSTAIRS WITH S.O.
[2018-11-01] MEDS: IBUPROFEN 600 MG (MOTRIN) TAB PO SCH ×2 (12:31→18:30)
--- NOTE | 2018-11-01 13:00 | NUR ---
VSS. CONTINUES TO CARE FOR IN ROOM. VISITORS AT BEDSIDE.
[2018-11-01 13:15] VITALS: BP 117/68
--- NOTE | 2018-11-01 15:30 | NUR ---
PAIN MEDS GIVEN PER REQUEST. NO CHANGE IN STATUS.
[2018-11-01 18:30] VITALS: BP 120/84
--- NOTE | 2018-11-01 18:30 | NUR ---
LOTS OF VISITORS AT BEDSIDE. VSS. RATES PAIN 2-3/10.
--- NOTE | 2018-11-01 19:20 | NUR ---
REPORT RECEIVED AND CARES RESUMED BY THIS NURSE.
--- NOTE | 2018-11-01 20:05 | NUR ---
PT AMB OFF UNIT IN STABLE CONDITION.
--- NOTE | 2018-11-01 20:15 | NUR ---
PT RETURNED TO UNIT AND TO ROOM. DENIES ANY NEEDS.
--- NOTE | 2018-11-01 20:45 | NUR ---
INITIAL SHIFT ASSESSMENT DONE. VSS. PT REQUESTS PAIN MEDS. WILL ADMINISTER.
--- NOTE | 2018-11-01 23:05 | NUR ---
PT C/O LEGGINGS PUTTING PRESSURE ON INCISION. RECOMMENDED TAKING THEM OFF AND PUTTING A GOWN ON TO SLEEP. ICE PACK REFILLED AND PLACED TO ABD.
[2018-11-02] MEDS: IBUPROFEN 600 MG (MOTRIN) TAB PO SCH ×5 (00:33→23:36)
--- NOTE | 2018-11-02 02:00 | NUR ---
PT HYSTERICAL. PT STATES THAT NURSE THAT WAS COVERING FOR THIS NURSE CAME TO ADMINISTER PAIN MEDS AT 0100 AND DID NOT ADMINISTER WHAT SHE ASKED FOR. STATES IS STILL IN A LOT OF PAIN AND INFANT IS SCREAMING AND WON'T STOP DESPITE MORE ON THAN OFF FOR THE PAST SEVERAL HOURS. TAKEN TO NSY. ADDITIONAL OXYCODONE TAB ADMINISTERED. ICE PACK REFILLED FOR INCISION. ABLE TO CALM PT DOWN AND ENCOURAGE HER TO REST.
[2018-11-02 04:10] VITALS: BP 119/79
--- NOTE | 2018-11-02 05:30 | NUR ---
PT AWAKENED TO BREASTFEED. REPORTS SLEPT OFF ET ON SINCE 0200. DENIES ANY NEEDS.
--- NOTE | 2018-11-02 06:00 | NUR ---
PT REQUESTS PAIN MEDS. WILL ADMINISTER.
[2018-11-02] MEDS: ACETAMINOPHEN 500 MG TAB (TYLENOL) PO SCH ×2 (06:06→17:25)
--- NOTE | 2018-11-02 06:31 | NUR ---
PT EATING BREAKFAST. DENIES ANY NEEDS. PAIN IMPROVING.
[2018-11-02 07:35] VITALS: BP 99/60
[2018-11-02] MEDS: DOCUSATE SODIUM 100 MG (COLACE) CAP PO SCH ×2 (08:48→22:16)
--- NOTE | 2018-11-02 08:55 | NUR ---
PT UP IN THE BATHROOM UPON THIS RN ENTERING ROOM. PT TO BED. MEDS GIVEN; SEE EMAR FOR FURTHER. INITIAL SHIFT ASSESSMENT COMPLETED; SEE INTERVENTION FOR FURTHER. PT'S OLDER DAUGHTER AT THE BEDSIDE. MORE PANTIES PROVIDED PER REQUEST, SHOWER ALSO SET UP AT THIS TIME. NO FURTHER NEEDS VOICED.
[2018-11-02 11:16] VITALS: BP 105/69
--- NOTE | 2018-11-02 11:26 | NUR ---
PT C/O PAIN, RATING 7/10. MEDS GIVEN PO; SEE EMAR FOR FURTHER.
--- NOTE | 2018-11-02 12:20 | NUR ---
PT REMAINS IN BED, HOLDING . MEDS GIVEN; SEE EMAR FOR FURTHER. PT HAS VOICED CONCERN R/T INCISION, HAS SHOWERED BUT HAS NOTICED SOME BLEEDING. INCISION REMAINS C/D/I, MINIMAL OOZING FROM INCISION NOTED. NO FURTHER NEEDS OR QUESTIONS VOICED.
[2018-11-02] MEDS ORDERED: SIMETHICONE 80 MG (MYLICON) CHEW PO SCH (13:00)
--- NOTE | 2018-11-02 16:43 | NUR ---
PT , DENIES ANY NEEDS AT THIS TIME.
--- NOTE | 2018-11-02 17:30 | NUR ---
PT C/O PAIN. PT IN BED, S/O AND FAMILY AT THE BEDSIDE. MEDS GIVEN PO; SEE EMAR FOR FURTHER. NO FURTHER NEEDS VOICED.
--- NOTE | 2018-11-02 17:31 | NUR ---
PT AMBULATES OFF UNIT WITH OLDER DAUGHTER.
--- NOTE | 2018-11-02 18:14 | NUR ---
PT IN BED, . ROUTINE MOTRIN GIVEN PO; SEE EMAR FOR FURTHER. FAMILY PREPPING TO LEAVE THE BEDSIDE. NO NEEDS VOICED.
[2018-11-02 19:40] VITALS: BP 125/74
[2018-11-03 01:41] VITALS: BP 115/75
[2018-11-03] MEDS: ACETAMINOPHEN 500 MG TAB (TYLENOL) PO SCH ×2 (01:42→10:07)
[2018-11-03] MEDS: IBUPROFEN 600 MG (MOTRIN) TAB PO SCH ×2 (05:31→13:13)
--- NOTE | 2018-11-03 07:49 | Postpartum Progress Note ---
Post Op Post-operative Day #3 s/p RLTCS Subjective: Patient is without complaints. Ambulating, voiding after shaikh removed. Tolerating a regular diet without nausea or vomiting. Normal lochia. Pain is well controlled with oral pain medications. Passing flatus. breast feeding. [] Objective: 11/03/18 01:41 Temp 37.4 Pulse 86 Resp 18 B/P (MAP) 115/75 (88) Pulse Ox 98 O2 Delivery Room Air Physical Exam: General - Alert and oriented, no apparent distress Abdomen - Soft, appropriately tender to palpation, non-distended, fundus firm at umbilicus Incision - clean, dry and intact; no erythema or induration, no drainage Extremities - no edema, negative Jabari's bilaterally Assessment: 1 post-operative day # 3, status post RLTCS. Recovering well, hemodynamically stable Acute blood loss anemia Plan: Routine post-operative care. Encourage breast feeding. Encourage ambulation. VTE prophylaxis: SCDs. Ferrous sulfate supplementation. Plan for discharge today or to parent room Vitals - Labs Vital Signs - I&O Vital Signs Date Time Temp Pulse Resp B/P (MAP) Pulse Ox O2 Delivery O2 Flow Rate FiO2 11/03/18 01:41 37.4 86 18 115/75 (88) 98 Room Air 11/02/18 19:40 37.1 81 16 125/74 (91) 100 11/02/18 11:16 36.6 79 18 105/69 (81) 98 Room Air Labs Microbiology 10/31/18 MRSA Screen - Final, Complete MRSA not isolated 10/31/18 Urine Culture - Final, Complete 3 or more isolates PRATIK MEZA DO Nov 03, 2018 07:49
[2018-11-03 08:45] VITALS: BP 123/78
--- NOTE | 2018-11-03 08:45 | NUR ---
PT AWAKE, IN BED. VS OBTAINED. INITIAL SHIFT ASSESSMENT COMPLETED; SEE INTERVENTION FOR FURTHER. PT REPORTS + BM. SHOWER SET UP. NO FURTHER NEEDS VOICED. CALL LIGHT WITHIN REACH.
--- NOTE | 2018-11-03 09:28 | NUR ---
DR. MEZA TO PT'S BEDSIDE.
[2018-11-03] MEDS ORDERED: OXYC10TA7 PO (10:03)
[2018-11-03] MEDS ORDERED: GUAI120013 PO (10:03)
[2018-11-03] MEDS ORDERED: DOCU100C37 PO (10:03)
[2018-11-03] MEDS ORDERED: DOCU-143 PO (10:03)
[2018-11-03] MEDS ORDERED: ACET-77 PO (10:03)
[2018-11-03] MEDS ORDERED: IBUP-844 PO (10:03)
[2018-11-03] MEDS: DOCUSATE SODIUM 100 MG (COLACE) CAP PO SCH (10:07)
--- NOTE | 2018-11-03 11:41 | NUR ---
DISCHARGE PAPERS PROVIDED AND REVIEWED WITH PT, PT VERBALIZES UNDERSTANDING AND DENIES ANY QUESTIONS AT THIS TIME. PAPER SIGNED.
[2018-11-03] MEDS ORDERED: guaiFENesin (MUCINEX) 600 MG TAB PO SCH (11:45)
[2018-11-03 12:00] VITALS: BP 116/78
--- NOTE | 2018-11-03 14:00 | NUR ---
DEX REMOVED. BENZOIN AND STERI STRIPS APPLIED.
--- NOTE | 2018-11-03 17:00 | NUR ---
S/O AND FAMILY TO PT'S BEDSIDE. PT DISCHARGED FROM -308 TO [facility] VIA AMBULATORY IN STABLE CONDITION. PT IS GOING TO [facility] TO BE WITH . PT DOESN'T TRUST S/O AND IS LEAVING TO OBTAIN HER OWN RXS.
== END 2018-11-03 17:00 | disposition home or self-care (01) | DRG 787 ==
LOC: LDRP 06:10 → WS 11-02 10:10
PROVIDERS: ADMIT Obstetrics & Gynecology; ATTEND Obstetrics & Gynecology
PROC: 10D00Z1 Extraction of Products of Conception, Low, Open Approach (ICD-10-PCS; principal; 2018-10-31 07:49)
DX: O34.211 Maternal care for low transverse scar from previous cesarean delivery (principal); O90.81 Anemia of the puerperium; D62 Acute posthemorrhagic anemia; O99.334 Smoking (tobacco) complicating childbirth; O99.344 Other mental disorders complicating childbirth; F32.9 Major depressive disorder, single episode, unspecified; F41.9 Anxiety disorder, unspecified; F17.210 Nicotine dependence, cigarettes, uncomplicated; Z88.0 Allergy status to penicillin; Z91.040 Latex allergy status; Z3A.39 39 weeks gestation of pregnancy; Z37.0 Single live birth
CPT/HCPCS: 36415; 81000; 85025; 86850; 86900; 86901; 87081; 87088; 94664; 96361; 96374; 96376; 99213

== ENCOUNTER 2022-11-11 16:45 | Inpatient (IN) | payer SELFPAY ==
[2022-11-11] VITALS (8 sets, daily range): BP systolic 92–116; BP diastolic 61–84
[~2022-11-11 16:45] MED LIST changes: +ACET-78 PO; -CITRIC ACID/SOB CIT (BICITRA) 30 ML UDC ONE; +CYCL10TA25 PO; -CYCL10TA9 PO; +DOCU-143 PO; +DOCU100C37 PO; -FAMOTIDINE 20MG/2ML IV (PEPCID) ONE; +GUAI120013 PO; +IBUP-844 PO; +LORA0.5T PO; -METOCLOPRAMIDE INJ 10 MG/2 ML (REGLAN) ONE; -OXYC-471 PO; +OXYC10TA7 PO; +OXYC1TAB11 PO
--- OUTSIDE RECORDS SUMMARY | 2022-11-11 16:57 | XMS REPORT ---
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 Name Role Phone ANDERSON SALAS Unavailable PROBLEMS Type Condition ICD9-CM Code [id number] Code Onset Dates Condition Status W/U Status Risk SNOMED Code Notes Problem Missed period N92.6 confirmed 811918 00 Problem care in first trimester Z34.91 confirmed 450077221 Problem Eating disorder, unspecified F50.9 confirmed 456967828 Problem Nipple discharge N64.52 confirmed 39970238 Problem Acute midline low back pain with left-sided sciatica M54.42 confirmed 942532610 Problem Dysthymia F34.1 confirmed 02861551 Problem BMI less than 19,adult Z68.1 confirmed 596251108 Problem PID (pelvic inflammatory disease) N73.9 confirmed 590473578 Problem Anxiety about health F41.8 confirmed 974544659 Problem Surveillance for control, intrauterine device Z30.431 confirmed 120415944 Problem Anxiety F41.9 confirmed 14239815 Problem Depression F32.9 confirmed 53926275 Problem Gastroesophag eal reflux disease, esophagitis presence not specified K21.9 confirmed 112918265 Problem Irritable bowel syndrome, unspecified type K58.9 confirmed 87790634 Problem Irritable bowel syndrome with both constipation and diarrhea K58.2 confirmed 65282827 Problem 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 90413687 Problem Post-traumati c stress disorder, unspecified F43.10 confirmed 18742705 Problem Advanced maternal age in multigravida, unspecified trimester O09.529 confirmed Problem Psoriasis L40.9 confirmed 2740008 Problem Drug use complicating 648.40 confirmed 347690800 Problem Panic disorder without agoraphobia F41.0 confirmed 76529977 Problem Excessive and frequent menstruation N92.0 confirmed 624909323 Problem Anxiety about health F41.8 confirmed 370984038 Problem Generalized anxiety disorder F41.1 confirmed 49043545 Problem Generalized anxiety disorder F41.1 confirmed 60833412 Problem H/O section complicating O34.219 confirmed ALLERGIES Allergen (clinical drug ingredient) Drug/Non Drug Allergy documented on EMR Reaction Allergy Type Onset Date Status penicillin G Penicillin G Sodium([facility] Code:[address]-46) Unknown Drug Allergy Active penicillin V Penicillin V Potassium([facility] Code:[address]-82) Unknown Drug Allergy Active Latex/Latex Containing Products Unknown Non Drug Allergy Active ENCOUNTERS from 1987 to 2022-11-06 Encounter Location Date Provider Diagnosis [facility] [address] [facility] [id number] [place] [address] Nov, ANDERSON SALAS IMMUNIZATIONS Vaccine Route Administration Date Status PRIVATE FLULAVAL QUAD 0.5ML (6 MO AND UP) 2020 IM Intramuscular Nov 19, 2020 Administered SOCIAL HISTORY Sex Assigned At : Social History Observation Description Sex Assigned At Female Alcohol Screen (Audit-C) Question Answer Notes Did you have a drink contain ing alcohol in the past year? No Did you have a drink contain ing alcohol in the past year? Yes Points 0 Points 2 Interpretation Negative Interpretation Negative How many drinks did you have on a typical day when you were drinking in the past year? 1 or 2 (0 points) How often did you have a dri nk containing alcohol in the past year? Two to four times a month (2 points) Sexual History Question Answer Notes Had sex in the past 12 months (vaginal, oral, or anal)? Yes Have you ever had a Sexually transmitted disease ? No with Men only Use protection? No PHQ2 Question Answer Notes In the last 2 weeks, how oft en have you had little interest or pleasure in doing things? Not at all In the last 2 weeks, how oft en have you had little interest or pleasure in doing things? Not at all In the last 2 weeks, how oft en have you been feeling down, depressed, or hopeless? Not at all In the last 2 weeks, how oft en have you been feeling down, depressed, or hopeless? Not at all Total PHQ2 Score 0 Total PHQ2 Score 0 Tobacco use other than smoking: Question Answer Notes Are you an other tobacco user? No REASON FOR REFERRAL No Information MEDICATIONS Medication SIG (Take, Route, Frequency, Duration) Notes Start Date End Date Status Omeprazole 40 MG 1 capsule 30 minutes before morning meal Orally Once a day for 30 day(s) Apr, Not-Taking 28-0.8 MG 1 tablet Orally Once a day Active Promethazine HCl 25 MG 1 tablet as neede d Orally every 12 hrs for 5 days Apr, Not-Taking Vitamin D 50 MCG (1999 UT) 1 tablet Orally Once a day Not-Taking Stool Softener 100 MG 1 capsule as neede d Orally Once a day Active REASON FOR VISIT Concerns MEDICAL (GENERAL) HISTORY Type Description Date Medical History PTSD Medical History panic disorder Surgical History C sections Surgical History tonsillectomy Surgical History Colonoscopy Surgical History colonoscopy/EGD 2004 Surgical History X 4 Surgical History Tonsillectomy Hospitalization History Esophagitis 2004 MENTAL STATUS No Information PLAN OF TREATMENT No Information Insurance Providers Payer Name Payer Address Payer Phone Insured Name Patient Relationship to Insured Coverage Start Date Coverage End Date Subscriber Number Group Number [employer] [id number] [facility] [id number] Seth De La Cruz Self - patient is the insured 1 [id number] MEDICATIONS ADMINISTERED Medication Instructions Date of Administration Edmundo howard ROCEPHIN 250 MG (IM) Jan,
[2022-11-11] MEDS ORDERED: CITRIC ACID/SODIUM CITRATE ORAL SOLN 30 ML PO ONE (17:00)
[2022-11-11] MEDS ORDERED: METOCLOPRAMIDE INJ 10 MG/2 ML IV ONE (17:00)
[2022-11-11] MEDS ORDERED: FAMOTIDINE INJ 20MG/2ML VIAL IV ONE (17:00)
[2022-11-11] MEDS ORDERED: CITRIC ACID/SODIUM CITRATE ORAL SOLN 30 ML ONE (17:09)
[2022-11-11] MEDS ORDERED: FAMOTIDINE INJ 20MG/2ML VIAL ONE (17:09)
[2022-11-11] MEDS ORDERED: METOCLOPRAMIDE INJ 10 MG/2 ML ONE (17:09)
[2022-11-11] MEDS ORDERED: ceFAZolin INJECTION 2,000 MG ONE (17:13)
[2022-11-11] MEDS ORDERED: NS (IVPB) 50 ML 50 ML ONE (17:14)
[2022-11-11] MEDS ORDERED: D5 LR 1,000 ML IV SOLN 1,000 ML IV SCH (17:15)
[2022-11-11] MEDS ORDERED: LACTATED RINGERS 1,000 ML 500 ML IV PRN (17:15)
[2022-11-11] MEDS: LACTATED RINGERS 1,000 ML 1,000 ML IV PRN (17:19)
--- NOTE | 2022-11-11 17:20 | History & Physical-OB ---
OB - Chief Complaint & HPI Date/Time Date of Admission: Date of Admission: Nov 11, 2022 at 16:45 Date seen by a Provider: Nov 11, 2022 Time Seen by a Provider: 16:00 Chief Complaint/History OB-Reason for Admission/Chief: Section Hx : 5 Hx Para: 5 Expected Date of Delivery: Dec 02, 2022 Gestational Age in Weeks: 37 Gestational Age in Days: 0 Indication for : desires repeat Other reason for admission: This 37-year-old G5, P5 presented to labor and delivery for repeat low- transverse section secondary to being seen in the office today for a biophysical profile. Of note the NEEMA was 6.5 and the BPP was 6 out of 8. The patient had had an ultrasound a couple weeks ago which gave an estimated gestational age of 33 weeks and patient had good dating from April 2022 which gave her an EDC of 12/02/2022 which put her in the less than 10th percentile for estimated weight. Based on all of this information it was decided that we should proceed to a repeat low-transverse section. The patient verbalized understanding of the risk benefits and alternatives and signed consen ts and is ready to proceed Admission Nurse Assessment Rev: Yes History of Labs O+ GBS neg HIV neg RPR neg Hep B/C NEG Allergies and Home Medications Allergies Coded Allergies: Penicillins (Verified Allergy, Unknown, 09/06/05) latex (Verified Allergy, Unknown, 05/19/13) Patient Home Medication List Home Medication List Reviewed: Yes Acetaminophen (Acetaminophen) 500 Mg Tablet, 1,000 MG PO Q8HR Prescribed by: PRATIK MEZA on 11/03/18 1003 Last Action: Reviewed Azithromycin (Zithromax) 250 Mg Tablet, 250 MG PO UD Prescribed by: ROGER PUGH on 11/13/22 1207 Cyclobenzaprine HCl (Cyclobenzaprine HCl) 10 Mg Tablet, 10 MG PO, (Reported) Entered as Reported by: NICK GALICIA on 10/29/18442 Last Action: Reviewed Escitalopram Oxalate (Lexapro) 20 Mg Tablet, 20 MG PO, (Reported) Entered as Reported by: NICK GALICIA on 10/29/18442 Last Action: Reviewed Hydrocodone/Acetaminophen (Hydrocodone-Acetamin 5-325 mg) 5 Mg-325 Mg Tablet, 0 EA PO Q6H PRN for PAIN-MODERATE (5-7) Prescribed by: Marisabel Farley on 11/12/22 0705 Ibuprofen (Ibu) 600 Mg Tablet, 600 MG PO Q6HR Prescribed by: PRATIK MEZA on 11/03/18 100 Last Action: Reviewed Discontinued Medications Lorazepam (Lorazepam) 0.5 Mg Tablet, 0.5 MG PO Q8H PRN for ANXIETY Prescribed by: PRATIK MEZA on 11/10/18 1423 Last Action: Reviewed Oxycodone HCl (Oxycodone HCl) 10 Mg Tablet, 10 MG PO Q6H Prescribed by: PRATIK MEZA on 11/03/18 100 Last Action: Reviewed OB - History Hx of Present Care: No Ultrasounds: Other (Early US with Dating consistent with LMP and 36wk US that showed IUGR) Obstetrical Complications: Growth Restriction, Other Medical Complications: None Information Induced Hypertension: No Maternal Gestational Diabetes: No Hemorrhage: No Obstetrical History Hx : 5 Hx Para: 5 Hx # Term Pregnancies: 3 Hx # Pregnancies: 1 (Twin gestation delivered @28wk) Number of Living Children: 5 Hx Termination: Yes Hx Total # of Abortions (Spona: 0 Hx Multiple Gestation: Yes Hx Stillbirth: No Hx Complication: Yes ( delivery of twins) Hx Induced Hypertens: No Hx Maternal Gestational Diabet: No Hx Hemorrhage: No Delivery History Hx Dystocia: No Hx Large For Gestational Age I: No Hx Small for Gestational Age I: No Hx Section: Yes (x4) Hx Vaginal Delivery Post C-Sec: No Hx Blood Disorders: No Adverse Rxn to Tranfusion: No Risk Variables Obstetrical Risk Variables: POA Substance Abuse (TOB, OPXY CONTIN bUPRENORPHINE) Patient Past Medical History PMH none PSH CSx4 Social History/Family History Alcohol Use: Occasionally Uses Recreational Drug Use: Yes (+ Oxycontin & Buprenorphine on UDS ) Smoking Cessation: Current every day smoker 2nd Hand Smoke Exposure: Yes Immunizations Influenza Vaccine Up-to-Date: No; Not Current Hepatitis A: Yes Hepatitis B: Yes Tetanus Booster (TDap): Unknown GBS Status: Negative OB - Admission Exam Physical Exam HEENT: NCAT Heart: Rhythm Normal Lungs: Clear Abdomen: Gravid Extremities: Normal Reflexes: Normal Cervical Dilatation: None Effacement: 25% Station: -3 Membranes: Intact Heart Rate: 130's Decelerations: No Decelerations Short Term Variability: Present 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
[2022-11-11 17:26] LABS: BASOPHILS % (AUTO) 0 % (0-10); EOSINOPHILS # (AUTO) 0.1 10^3/uL (0.0-0.3); EOSINOPHILS % (AUTO) 1 % (0-10); HEMATOCRIT 39 % (35-52); HEMOGLOBIN 13.5 g/dL (11.5-16.0); LYMPHOCYTES % (AUTO) 27 % (12-44); MEAN CORPUSCULAR HEMOGLOBIN 33 pg (25-34); MEAN CORPUSCULAR HGB CONC 35 g/dL (32-36); MEAN CORPUSCULAR VOLUME 96 fL (80-99); MEAN PLATELET VOLUME 10.1 fL (9.0-12.2); MONOCYTES # (AUTO) 0.5 10^3/uL (0.0-1.0); MONOCYTES % (AUTO) 5 % (0-12); NEUTROPHILS # (AUTO) 7.5 10^3/uL (1.8-7.8); NEUTROPHILS % (AUTO) 67 % (42-75); PLATELET COUNT 222 10^3/uL (130-400); WHITE BLOOD COUNT 11.3 10^3/uL (4.3-11.0)
[2022-11-11] MEDS ORDERED: ceFAZolin INJECTION 2,000 MG in NS (IVPB) 50 ML 50 ML IV NR (17:30)
--- NOTE | 2022-11-11 17:31 | Cesarean Section Operative ---
Procedure Procedure Note Pre-operative Diagnosis: IUP at 37 weeks, advanced maternal age, intrauterine growth restriction, oligohydramnios, nonreassuring antepartum testing, Previous section, tobacco use Post-operative Diagnosis: samePlus liveborn male Procedure: Repeat low transverse section Physician: SHANKAR CROSS Survey Chief: Lauren Zamora MD Estimated blood loss: 300 mL Fluids: 1000 Irrigation 700 Urine output 30 Disposition: Counts correct x3 patient taken to the PACU in stable condition Findings: Liveborn male @1808 on 11/11/2022, Apgars 8/9, weight 4# 13oz, intact placenta, 3vc, normal appearing uterus, tubes, and ovaries. Indications:Seth De La Cruz is a 37-year-old G5, P5 who presented at 37 weeks 0 days EGA for repeat low-transverse section secondary to being seen in the office. She had an ultrasound approximately 2 weeks ago that gave an EFW that was 2062 g and less than the 10th percentile for growth. She had a BPP in the office today that was 6 out of 8 and an NEEMA 6.5. It was decided to proceed to repeat low-transverse section. The risks, benefits and alternatives were discussed with the patient and the patient verbalized understanding had all of her questions answered to her satisfaction. Procedure Details: Patient was taken to the OR suite placed under spinal anesthesia placed in the dorsal supine position with a left lateral tilt prepped and draped usual sterile fashion. A timeout was performed verifying patient and procedure. Anesthesia was confirmed using an Allis clamp and incised Pfannenstiel skin incision was made carried down to level the fascia the fascia was nicked and incised bilaterally reflected off the rectus abdominis muscle both superiorly and inferiorly the rectus abdominis muscle was in the midline and the peritoneum was entered into bluntly and extended bilaterally. Confirming that there were no adhesions to the uterus the Mathew self-retaining retractor was then placed and a low transverse uterine incision was made and extended bilaterally. There was noted that the placenta was on the anterior side and was presenting once the incision was made and extended. The head was delivered atraumatically and the mouth and nose were bulb suctioned. The cord was clamped and cut after 30 seconds of delayed cord clamping. The infant was placed into the direct support staff's care. Cord bloods were obtained. The placenta was spontaneously removed and uterus was exteriorized and cleared of all clot and debris. The uterine incision was reapproximated using 0 Vicryl in a running locking fashion and imbricated using 0 Vicryl in a running fashion for excellent hemostasis. The abdominal cavity was irrigated with 700 cc of normal saline. The uterus tubes and ovaries were noted to be normal were placed back inside the abdominal cavity without any difficulty. The incision was inspected once more and was noted to be hemostatic. The Mathew retractor was then removed and the peritoneum was reapproximated using 0 Vicryl in running fashion the rectus abdominis muscle was reapproximated using 0 Vicryl in 4 interrupted sutures. The fascia was reapproximate using 1 Vicryl in running fashion. The subcutaneous space was hemostatic and reapproximated using 2-0 Vicryl in a running fashion. The skin was then reapproximated using 4-0 Monocryl in a running fashion and the skin was then sealed with Dermabond. All sponge lap and needle counts were correct x3. The patient was taken to recovery room in stable condition mother and are recovering well. Vitals - Labs Labs Laboratory Tests 11/11/22 17:15: White Blood Count 11.3H, Red Blood Count 4.06, Hemoglobin 13.5, Hematocrit 39, Mean Corpuscular Volume 96, Mean Corpuscular Hemoglobin 33, Mean Corpuscular Hemoglobin Concent 35, Red Cell Distribution Width 12.4, Platelet Count 222, Me an Platelet Volume 10.1, Immature Granulocyte % (Auto) 0, Neutrophils (%) (Auto) 67, Lymphocytes (%) (Auto) 27, Monocytes (%) (Auto) 5, Eosinophils (%) (Auto) 1, Basophils (%) (Auto) 0, Neutrophils # (Auto) 7.5, Lymphocytes # (Auto) 3.0, Monocytes # (Auto) 0.5, Eosinophils # (Auto) 0.1, Basophils # (Auto) 0.0, Immature Granulocyte # (Auto) 0.1 SHANKAR CROSS DO Nov 11, 2022 17:31
[2022-11-11] MEDS ORDERED: fentaNYL INJECTION 100 MCG/2 ML VIAL ONE (17:36)
[2022-11-11] MEDS: KETOROLAC INJ 15 MG/ML VIAL IV SCH (18:30)
[2022-11-11] MEDS ORDERED: BUPIVACAINE 0.5% 30 ML VIAL ONE (18:39)
[2022-11-11] MEDS ORDERED: KETOROLAC INJ 30 MG/ML VIAL ONE (18:39)
[2022-11-11] MEDS ORDERED: OXYTOCIN DRIP PRE-MIX 500 ML IV ONE (18:39)
[2022-11-11 18:42] LABS: AMPHETAMINE SCREEN, URINE NEGATIVE (NEGATIVE); BARBITURATE SCREEN URINE NEGATIVE (NEGATIVE); CANNABINOID SCREEN, URINE POSITIVE (NEGATIVE); COCAINE SCREEN URINE NEGATIVE (NEGATIVE); METHADONE STAT NEGATIVE (NEGATIVE); OPIATE SCREEN URINE POSITIVE (NEGATIVE); OXYCODONE STAT POSITIVE (NEGATIVE); PROPOXYPHENE STAT NEGATIVE (NEGATIVE); TRICYCLIC ANTIDEPRESSANTS SCRE NEGATIVE (NEGATIVE)
[2022-11-11] MEDS ORDERED: ONDANSETRON INJECTION 4 MG/2 ML (SDV) IVP PRN (19:00)
[2022-11-11] MEDS ORDERED: MEASLES, MUMPS, RUBELLA VACCINE (MMR) SC SCH (19:00)
[2022-11-11] MEDS ORDERED: Tetanus/Diphtheria/Pertussis (Acell) ADULT Vaccine 0.5 ML IM SCH (19:00)
[2022-11-11] MEDS ORDERED: OXYTOCIN DRIP PRE-MIX 500 ML IV SCH (19:00)
[2022-11-11] MEDS ORDERED: NALOXONE 0.4 MG/ML 1 ML VIAL IV PRN (19:00)
[2022-11-11] MEDS: DOCUSATE SODIUM 100 MG CAPSULE PO SCH (21:04)
[2022-11-11] MEDS: HYDROcodone/ACETAMINOPHEN 5 MG/325 MG TABLET PO PRN (21:04)
[2022-11-11] MEDS ORDERED: CATHETER FLUSH 10 ML SYR IV SCH (22:00)
[2022-11-12 00:01] VITALS: BP 118/85
[2022-11-12] MEDS: KETOROLAC INJ 15 MG/ML VIAL IV SCH ×3 (00:01→12:41)
[2022-11-12] MEDS: HYDROcodone/ACETAMINOPHEN 5 MG/325 MG TABLET PO PRN ×5 (01:02→19:58)
[2022-11-12 03:45] VITALS: BP 103/55
[2022-11-12 05:49] LABS: BASOPHILS # (AUTO) 0.1 10^3/uL (0.0-0.1); BASOPHILS % (AUTO) 0 % (0-10); EOSINOPHILS # (AUTO) 0.2 10^3/uL (0.0-0.3); EOSINOPHILS % (AUTO) 2 % (0-10); HEMATOCRIT 29 % (35-52); HEMOGLOBIN 10.1 g/dL (11.5-16.0); LYMPHOCYTES % (AUTO) 25 % (12-44); MEAN CORPUSCULAR HEMOGLOBIN 33 pg (25-34); MEAN CORPUSCULAR HGB CONC 34 g/dL (32-36); MEAN CORPUSCULAR VOLUME 97 fL (80-99); MEAN PLATELET VOLUME 10.9 fL (9.0-12.2); MONOCYTES # (AUTO) 0.7 10^3/uL (0.0-1.0); MONOCYTES % (AUTO) 5 % (0-12); NEUTROPHILS # (AUTO) 8.4 10^3/uL (1.8-7.8); NEUTROPHILS % (AUTO) 67 % (42-75); PLATELET COUNT 167 10^3/uL (130-400); WHITE BLOOD COUNT 12.4 10^3/uL (4.3-11.0)
--- NOTE | 2022-11-12 06:30 | Postpartum Progress Note ---
Note Note Day # 1 Subjective: Patient is postop day #1 status post section doing well no concerns. Her pain is well controlled.Patient's urine output is low today. She has only [id number] cc out in the last 12-hour period. Objective: VSS AF Physical Exam: General - Alert and oriented, no apparent distress Heart regular rate and rhythm Lungs clear to auscultation bilaterally Breast symmetrical no erythema or edema or engorgement Abdomen - Soft, appropriately tender to palpation, non-distended, fundus firm at umbilicus Incision clean dry intact Lochia minimal Extremities - no edema, negative Jabari's bilaterally Assessment: day #1 status post repeat low-transverse section Hemodynamically stable Plan: Routine care. IV fluid hydration Encourage breast feeding. Encourage ambulation. Ferrous sulfate supplementation. Plan for discharge [] Vitals - Labs Vital Signs - I&O Vital Signs Date Time Temp Pulse Resp B/P (MAP) Pulse Ox O2 Delivery O2 Flow Rate FiO2 11/12/22 03:45 36.4 56 18 103/55 (71) 97 Room Air 11/12/22 00:01 36.3 70 18 118/85 (96) 99 Room Air 11/11/22 22:24 98 Room Air 11/11/22 20:31 35.7 63 18 111/70 (84) 100 Room Air 11/11/22 19:53 35.8 56 18 110/76 (87) 100 Room Air 11/11/22 19:30 Room Air 11/11/22 19:30 16 109/74 (86) 100 Room Air 11/11/22 19:20 16 115/80 (92) 100 Room Air 11/11/22 19:15 Room Air 11/11/22 19:10 16 100/84 (89) 100 Room Air 11/11/22 19:00 Room Air 11/11/22 19:00 20 92/69 (77) 99 Room Air 11/11/22 18:46 36.0 10 100/61 (74) 100 Room Air 11/11/22 18:46 Room Air I & O 11/12/22 07:00 Intake Total 550 ml Output Total 430 ml Balance 120 ml Labs Laboratory Tests 11/11/22 17:15: White Blood Count 11.3H, Red Blood Count 4.06, Hemoglobin 13.5, Hematocrit 39, Mean Corpuscular Volume 96, Mean Corpuscular Hemoglobin 33, Mean Corpuscular Hemoglobin Concent 35, Red Cell Distribution Width 12.4, Platelet Count 222, Mean Platelet Volume 10.1, Immature Granulocyte % (Auto) 0, Neutrophils (%) (Auto) 67, Lymphocytes (%) (Auto) 27, Monocytes (%) (Auto) 5, Eosinophils (%) (Auto) 1, Basophils (%) (Auto) 0, Neutrophils # (Auto) 7.5, Lymphocytes # (Auto) 3.0, Monocytes # (Auto) 0.5, Eosinophils # (Auto) 0.1, Basophils # (Auto) 0.0, Immature Granulocyte # (Auto) 0.1, Syphilis Total Antibody Negative 11/11/22 17:58: Urine Opiates Screen POSITIVEH, Urine Oxycodone Screen POSITIVEH, Urine Methadone Screen NEGATIVE, Urine Propoxyphene Screen NEGATIVE, Urine Barbiturates Screen NEGATIVE, Ur Tricyclic Antidepressants Screen NEGATIVE, Urine Phencyclidine Screen NEGATIVE, Urine Amphetamines Screen NEGATIVE, Urine Methamphetamines Screen NEGATIVE, Urine Benzodiazepines Screen POSITIVEH, Urine Cocaine Screen NEGATIVE, Urine Cannabinoids Screen POSITIVEH 11/12/22 05:30: White Blood Count 12.4H, Red Blood Count 3.04L, Hemoglobin 10.1#L, Hematocrit 29L, Mean Corpuscular Volume 97, Mean Corpuscular Hemoglobin 33, Mean Corpuscular Hemoglobin Concent 34, Red Cell Distribution Width 12.5, Platelet Count 167, Mean Platelet Volume 10.9, Immature Granulocyte % (Auto) 1, Neutroph ils (%) (Auto) 67, Lymphocytes (%) (Auto) 25, Monocytes (%) (Auto) 5, Eosinophils (%) (Auto) 2, Basophils (%) (Auto) 0, Neutrophils # (Auto) 8.4H, Lymphocytes # (Auto) 3.0, Monocytes # (Auto) 0.7, Eosinophils # (Auto) 0.2, Basophils # (Auto) 0.1, Immature Granulocyte # (Auto) 0.1 SHANKAR CROSS DO Nov 12, 2022 06:30
[2022-11-12] MEDS ORDERED: ACHD5005 PO (07:03)
[2022-11-12 08:55] VITALS: BP 114/58
[2022-11-12] MEDS: DOCUSATE SODIUM 100 MG CAPSULE PO SCH (08:55)
[2022-11-12] MEDS: FERROUS SULFATE 325 MG (IRON) TABLET PO SCH (08:56)
[2022-11-12] MEDS: LACTATED RINGERS 1,000 ML 1,000 ML IV PRN (10:21)
[2022-11-12 12:41] VITALS: BP 131/71
[2022-11-12 18:07] VITALS: BP 111/72
[2022-11-12] MEDS: IBUPROFEN 800 MG TABLET PO SCH (18:07)
[2022-11-12] MEDS: SIMETHICONE 80 MG CHEWABLE TABLET PO SCH (18:08)
[2022-11-12] MEDS ORDERED: diphenhydrAMINE 25 MG TABLET PO ONE ×2 (22:08→22:15)
[2022-11-13] MEDS: DOCUSATE SODIUM 100 MG CAPSULE PO SCH ×2 (00:22→09:23)
[2022-11-13] MEDS: SIMETHICONE 80 MG CHEWABLE TABLET PO SCH ×2 (00:22→09:23)
[2022-11-13] MEDS: HYDROcodone/ACETAMINOPHEN 5 MG/325 MG TABLET PO PRN ×4 (00:24→15:03)
[2022-11-13 00:28] VITALS: BP 145/65
[2022-11-13] MEDS: IBUPROFEN 800 MG TABLET PO SCH ×2 (02:39→09:22)
[2022-11-13 04:31] VITALS: BP 141/72
[2022-11-13 09:21] VITALS: BP 130/70
[2022-11-13] MEDS: FERROUS SULFATE 325 MG (IRON) TABLET PO SCH (09:22)
--- NOTE | 2022-11-13 11:29 | Short Stay Summary ---
Discharge Summary Hospital Course Was the Problem List Reviewed?: Yes Problems/Dx: (1) at 37 weeks gestation or greater with abnormal testing (2) IUGR (intrauterine growth restriction) Final Diagnosis: 37 weeks, IUGR, non-reassuring testing Hospital Course Date of Admission: Nov 11, 2022 at 16:45 Admission Diagnosis : 37 weeks, IUGR, non-reassuring testing Family Physician/Provider: [place]/[facility] Date of Discharge: 11/13/22 Discharge Diagnosis: 37 weeks, IUGR, non-reassuring testing Hospital Course: Patient underwent uncomplicated under spinal anesthesia productive of viable 4 lbs 13 onz. male infant with . Patient had uncomplicated post-op course and ready for discharge on post-op day 2. I had detailed counseling session this AM with patient about significant increased risk of placenta accreta and previa with next future C-Sections (next one would be 6th). Patient understands information given, states not planning on having more children. We discussed contraception and sterilization options as outpatient including vasectomy. Patient has appointment 11/17/[address] Farley for incision check. Patient states had COVID at 33 weeks, she is a smoker and has had a non- productive cough since that time, a minutely productive cough today for first time. Lungs have been clear and patient with normal 02 saturation. Given above history and fact patient just had a I am prescribing Zithromax Z-Pack for bronchitis. Patient to guard abdomen or use abdominal binder if she has a coughing spell. Labs and Pending Lab Test: Home Meds Active Hydrocodone-Acetamin 5-325 mg (Hydrocodone/Acetaminophen) 5 Mg-325 Mg Tablet 0 Ea PO Q6H PRN Take 1 tablet every 6 hours as needed for pain Lorazepam 0.5 Mg Tablet 0.5 Mg PO Q8H PRN Oxycodone HCl 10 Mg Tablet 10 Mg PO Q6H 7 Days Acetaminophen 500 Mg Tablet 1,000 Mg PO Q8HR Ibu (Ibuprofen) 600 Mg Tablet 600 Mg PO Q6HR Reported Cyclobenzaprine HCl 10 Mg Tablet 10 Mg PO Lexapro (Escitalopram Oxalate) 20 Mg Tablet 20 Mg PO Assessment/Pt Instructions # Post-op day 2 after doing well # Discharge home Follow up 11/17/[address] Farley Routine written post instructions given. Discharge Instructions Discharge Diet: No Restrictions Activity as Tolerated: Yes Discharge Physical Examination General Appearance: Alert, Oriented X3 HEENT: Mucous Memb Moist/[place] Respiratory: Clear to Auscultation Abdominal: No Tenderness, Other (Incision clean and dry, no erythema. Uterus 6 cm below umbilicus.) Extremities: No Tenderness/Swelling Skin: No Rashes Neuro: Normal Gait Allergies: Coded Allergies: Penicillins (Verified Allergy, Unknown, 09/06/05) latex (Verified Allergy, Unknown, 05/19/13) Discharge Summary Date of Admission Nov 11, 2022 at 16:45 Date of Discharge 11/13/22 Discharge Date: Nov 13, 2022 Discharge Time: 11:30 Admission Diagnosis 37 weeks IUGR Non-reassuring testing Consults/Procedures Procedures Spinal Anesthesia Discharge Diagnosis 37 weeks IUGR Non-reassuring testing TISH CRANDALL DO Nov 13, 2022 11:24
[2022-11-13] MEDS ORDERED: AZIT250T PO (12:07)
--- NOTE | 2022-11-15 08:12 | Discharge Summary ---
Discharge Summary Hospital Course Hospital Course Date of Admission: Nov 11, 2022 at 16:45 Admission Diagnosis : Family Physician/Provider: [place]/[facility] Date of Discharge: 11/11/22 Discharge Diagnosis: Status post repeat low-transverse section Hospital Course: Patient was admitted for repeat low-transverse section after discovering an NEEMA of 6.53, BPP 6/8 and known IUGR. Patient delivered a liveborn and did well in the postoperative/ period. She was discharged home with pain medications and instructions to follow-up in 1 week. Labs and Pending Lab Test: Laboratory Tests 11/11/22 17:15: White Blood Count 11.3H, Red Blood Count 4.06, Hemoglobin 13.5, Hematocrit 39, Mean Corpuscular Volume 96, Mean Corpuscular Hemoglobin 33, Mean Corpuscular Hemoglobin Concent 35, Red Cell Distribution Width 12.4, Platelet Count 222, Mean Platelet Volume 10.1, Immature Granulocyte % (Auto) 0, Neutrophils (%) (Auto) 67, Lymphocytes (%) (Auto) 27, Monocytes (%) (Auto) 5, Eosinophils (%) (Auto) 1, Basophils (%) (Auto) 0, Neutrophils # (Auto) 7.5, Lymphocytes # (Auto) 3.0, Monocytes # (Auto) 0.5, Eosinophils # (Auto) 0.1, Basophils # (Auto) 0.0, Immature Granulocyte # (Auto) 0.1, Syphilis Total Antibody [Pending] Home Meds Active Lorazepam 0.5 Mg Tablet 0.5 Mg PO Q8H PRN Oxycodone HCl 10 Mg Tablet 10 Mg PO Q6H 7 Days Acetaminophen 500 Mg Tablet 1,000 Mg PO Q8HR Ibu (Ibuprofen) 600 Mg Tablet 600 Mg PO Q6HR Reported Cyclobenzaprine HCl 10 Mg Tablet 10 Mg PO Lexapro (Escitalopram Oxalate) 20 Mg Tablet 20 Mg PO Activity: Activity as Tolerated Driving Instructions: No Driving for 1 Week NO SMOKING: NO SMOKING Nothing Inside Vagina: No Douching, No [place], No Tampons Discharge Diet: Regular Diet Symptoms to Report to : Pain Increased, Fever Over 101 Degrees F, Vaginal Bl eeding Increase, Vaginal Discharge Foul For Any Problems or Questions: Contact Your Physician Infection Signs and Symptoms: Increased Redness, Foul Odor of Wound, Increased Drainage, Skin Itchy or Has a Rash, Increased Swelling, Temperature Above 101 F Operative Area Clean and Dry: Keep Incision Clean/Dry Stitches/[place]/Dermabond: Dermabond Discharge Physical Examination Allergies: Coded Allergies: Penicillins (Verified Allergy, Unknown, 09/06/05) latex (Verified Allergy, Unknown, 05/19/13) Discharge Summary Date of Admission Nov 11, 2022 at 16:45 Date of Discharge Supervisory-Addendum Brief Verification & Attestation Participated in pt care: history, MDM, physical Personally performed: exam, history, MDM, supervision of care Care discussed with: other Procedures: n/a Results interpretation: Verified all documentation I personally saw and examined this patient SHANKAR CROSS DO Nov 11, 2022 17:32
--- NOTE | 2022-11-15 10:43 | Anesthesia-Regional Post-Op ---
Regional Post Op Complications Complications None Follow Up Care/Instructions Patient Instructions None needed. Anesthesia/Patient Condition Chart reviewed, and no apparent adverse anesthesia problems noted. DENEEN,VIVIANE Bond CRNA Nov 15, 2022 10:43
== END 2022-11-13 16:30 | disposition home or self-care (01) | DRG 787 ==
LOC: LDRP 16:45
PROVIDERS: ADMIT Obstetrics & Gynecology; ATTEND Obstetrics & Gynecology
PROC: 10D00Z1 Extraction of Products of Conception, Low, Open Approach (ICD-10-PCS; principal; 2022-11-11 17:42)
DX: O34.211 Maternal care for low transverse scar from previous cesarean delivery (principal); O41.03X0 Oligohydramnios, third trimester, not applicable or unspecified; Z3A.37 37 weeks gestation of pregnancy; Z37.0 Single live birth; O36.5930 Maternal care for other known or suspected poor fetal growth, third trimester, not applicable or unspecified; O99.334 Smoking (tobacco) complicating childbirth; F17.210 Nicotine dependence, cigarettes, uncomplicated; Z86.16 Personal history of COVID-19
CPT/HCPCS: 36415; 80306; 85025; 85027; 86780; 86850; 86900; 86901; 94664